=== PATIENT | female | born 1940 | race Caucasian/White ===

== ENCOUNTER 2019-04-22 12:15 | Emergency (ER) | payer MEDICARE, OTHER ==
[~2019-04-22] VITALS: Ht 162.6 cm; Wt 84.2 kg
[~2019-04-22 12:15] MED LIST: ACET-1008 PO; AMI25T PO; AMIT-189 PO; ASPI-611 PO; CA C1TAB15 PO; CLIN150C8 PO; CYCL-394 PO; DIPH-423 PO; ENOX30SY10 SQ; LYR75C PO; MAGN-49 PO; MECL12.5 PO; MECL12.584 PO; MULT-785 PO; NORCO10T PO; OMEG1CAP54 PO; OMEP-84 PO; PANT-47 PO; PREG75CA30 PO; RIVA10TA PO; ROPI1TAB PO; ROPI1TAB4 PO; SENN187T PO; SUCR1ORA2 PO; VITC500T PO
[2019-04-22 12:57] LABS: BASOPHILS % (AUTO) 0.4 % (0-1); EOSINOPHILS # (AUTO) 0.2 X10'3 (0-0.9); EOSINOPHILS % (AUTO) 2.5 % (0-6); HEMOGLOBIN 14.5 g/dl (12.0-16.0); LYMPHOCYTES # (AUTO) 1.4 X10'3 (1.1-4.8); LYMPHOCYTES % (AUTO) 20.5 % (21-51); MEAN CORPUSCULAR HEMOGLOBIN 31.6 PG (27.0-31.0); MEAN CORPUSCULAR HGB CONC 33.7 g/dL (33.0-36.5); MEAN CORPUSCULAR VOLUME 93.7 FL (78-98); MEAN PLATELET VOLUME 9.3 FL (7.4-10.4); MONOCYTES # (AUTO) 0.6 X10'3 (0-0.9); MONOCYTES % (AUTO) 7.9 % (2-12); NEUTROPHILS # (AUTO) 4.8 X10'3 (1.8-7.7); NEUTROPHILS % (AUTO) 68.7 % (42-75); PLATELET COUNT 192 X10'3 (140-440); RED BLOOD COUNT 4.59 X10'6 (4.20-5.60); RED CELL DISTRIBUTION WIDTH 14.3 % (11.5-14.5); WHITE BLOOD COUNT 6.9 X10'3 (4.5-11.0)
[2019-04-22 13:11] LABS: ALANINE AMINOTRANSFERASE 22 U/L (12-78); ALBUMIN 3.9 G/DL (3.4-5.0); ALBUMIN/GLOBULIN RATIO 1.1 (1.1-1.5); ALKALINE PHOSPHATASE 105 IU/L (46-116); ANION GAP 5 (8-16); ASPARTATE AMINO TRANSFERASE 19 U/L (10-37); BILIRUBIN,TOTAL 0.4 MG/DL (0.1-1.0); BLOOD UREA NITROGEN 21 MG/DL (7-18); BUN/CREATININE RATIO 24.1 (6.6-38.0); CHLORIDE 103 MMOL/L (99-107); CREATININE 0.87 MG/DL (0.40-0.90); GLUCOSE 93 MG/DL (70-104); POTASSIUM 3.6 MMOL/L (3.5-5.1); SODIUM 139 MMOL/L (135-145); TOTAL CARBON DIOXIDE 30.6 MMOL/L (24-32); TOTAL PROTEIN 7.6 G/DL (6.4-8.2); eGFR 63 ML/MIN
[2019-04-22] MEDS ORDERED: aspirin 81mg tab.chew PO ONE (14:20)
[2019-04-22] MEDS ORDERED: METO50TA7 PO (14:48)
[2019-04-22 15:37] VITALS: BP 158/84
== END 2019-04-22 15:40 | disposition home or self-care (01) ==
LOC: ER 12:15
DX: R07.9 Chest pain, unspecified (principal); M79.7 Fibromyalgia; K21.9 Gastro-esophageal reflux disease without esophagitis; I10 Essential (primary) hypertension; Z88.0 Allergy status to penicillin; Z79.899 Other long term (current) drug therapy; Z79.82 Long term (current) use of aspirin; Z98.890 Other specified postprocedural states; Z60.2 Problems related to living alone
CPT/HCPCS: 36415; 71045; 80053; 84484; 85025; 93005; 99284

== ENCOUNTER → 2020-03-15 | Emergency (ER) | payer MEDICARE, OTHER ==
[~2020-03-15] VITALS: Ht 162.6 cm; Wt 90.9 kg
[~2020-03-15] MED LIST changes: +MECL-183 PO; -MECL12.584 PO; -ROPI1TAB4 PO; +ROPI1TAB6 PO; +ceFAZolin 1GM/D5W- ADD-VANTAGE 50 ML IV ONE
--- NOTE | 2020-03-15 20:51 | NUR ---
STRAIGHT CATH PERFORMED. PT REPROTED NEW URINARY RENTENTION SYMPTOMS TODAY. 700 ML OBTAINED FROM STRAIGHT CATH PROC, SAMPLE OBTAINED
[2020-03-15 21:15] LABS: CLARITY,URINE CLEAR (Clear); COLOR,URINE YELLOW (Yellow); GLUCOSE, URINE NEGATIVE (Neg); KETONES,URINE NEGATIVE (Neg); LEUKOCYTE ESTERASE ,URINE NEGATIVE (Neg); NITRITES, URINE NEGATIVE (Neg); OCCULT BLOOD,URINE SMALL (Neg); PROTEIN,URINE NEGATIVE (Neg)
[2020-03-15 21:22] LABS: NEUTROPHILS % (AUTO) 88.2 % (42-75)
[2020-03-15 21:23] LABS: BASOPHILS % (AUTO) 0.2 % (0-1); EOSINOPHILS % (AUTO) 0 % (0-6); HEMATOCRIT 38.3 % (35.0-45.0); HEMOGLOBIN 12.9 g/dl (12.0-16.0); LYMPHOCYTES % (AUTO) 6.1 % (21-51); MEAN CORPUSCULAR HEMOGLOBIN 31.4 PG (27.0-31.0); MEAN CORPUSCULAR HGB CONC 33.8 g/dL (33.0-36.5); MEAN CORPUSCULAR VOLUME 92.6 FL (78-98); MEAN PLATELET VOLUME 9.1 FL (7.4-10.4); MONOCYTES # (AUTO) 0.9 X10'3 (0-0.9); MONOCYTES % (AUTO) 5.5 % (2-12); PLATELET COUNT 161 X10'3 (140-440); RED BLOOD COUNT 4.13 X10'6 (4.20-5.60)
[2020-03-15 21:25] LABS: UA COLLECTION TYPE STRAIGHT CATH
[2020-03-15 21:26] LABS: BACTERIA,URINE NONE SEEN /HPF (Neg); RBC,URINE NONE SEEN /HPF (0-2); WBC,URINE 0-4 /HPF (0-4)
[2020-03-15 21:27] LABS: SQUAMOUS EPITHELIAL CELL,UR FEW /LPF (FEW)
[2020-03-15 21:37] LABS: ALANINE AMINOTRANSFERASE 44 U/L (12-78); ALBUMIN 3.5 G/DL (3.4-5.0); ALBUMIN/GLOBULIN RATIO 1.1 (1.1-1.5); ALKALINE PHOSPHATASE 107 IU/L (46-116); ANION GAP 13 (8-16); ASPARTATE AMINO TRANSFERASE 73 U/L (10-37); BILIRUBIN,TOTAL 1.1 MG/DL (0.1-1.0); BLOOD UREA NITROGEN 15 MG/DL (7-18); BUN/CREATININE RATIO 14.2 (6.6-38.0); CALCIUM 8.9 MG/DL (8.5-10.1); CHLORIDE 101 MMOL/L (99-107); CREATININE 1.06 MG/DL (0.40-0.90); GLUCOSE 95 MG/DL (70-104); LIPASE 56 U/L (73-393); POTASSIUM 3.3 MMOL/L (3.5-5.1); SODIUM 142 MMOL/L (135-145); TOTAL PROTEIN 6.7 G/DL (6.4-8.2); eGFR 50 ML/MIN
--- NOTE | 2020-03-15 22:25 | NUR ---
EMS ARRIVED ON UNIT
--- NOTE | 2020-03-15 22:27 | NUR ---
DR GARCIA AWARE PT DID NOT RECIEVE ANCEF TRANSPOR[facility]EAM HAS ARRIVED AND THEY WILL NOT TRANSPORT WITH IV ABX . CHARGE NURSE ALSO AWARE
--- NOTE | 2020-03-15 22:30 | NUR ---
REPORT GIVEN TO EMS TO TRANSPORT PATIENT TO [facility]
--- NOTE | 2020-03-15 22:30 | NUR ---
ANCEF NOT GIVEN
--- NOTE | 2020-03-15 22:34 | NUR ---
REPORT CALLED TO [facility]ELL AT [facility] FOR TRANSFER . RN AWARE ANCEF WAS NOT GIVEN AND PATIENT NEDDS ANCEF ASSAP
[2020-03-15 22:42] VITALS: BP 137/54
== END | disposition home or self-care (01) ==
LOC: ER 19:41
DX: S50.311A Abrasion of right elbow, initial encounter (principal); M54.5 Low back pain; R33.9 Retention of urine, unspecified; G89.29 Other chronic pain; L03.115 Cellulitis of right lower limb; K21.9 Gastro-esophageal reflux disease without esophagitis; M79.7 Fibromyalgia; Z60.2 Problems related to living alone; Z98.890 Other specified postprocedural states; Z88.0 Allergy status to penicillin; Z88.2 Allergy status to sulfonamides; Z79.82 Long term (current) use of aspirin; Z79.899 Other long term (current) drug therapy; W18.39XA Other fall on same level, initial encounter; Y93.89 Activity, other specified; Y92.89 Other specified places as the place of occurrence of the external cause; Y99.8 Other external cause status
CPT/HCPCS: 36415; 51701; 80053; 81001; 83690; 85025; 99285

== ENCOUNTER 2023-05-11 09:38 | Emergency (ER) | payer MEDICARE, OTHER ==
[~2023-05-11] VITALS: Ht 162.6 cm; Wt 104.5 kg
[~2023-05-11 09:38] MED LIST changes: -AMIT-189 PO; +AMIT50TA15 PO; +CLIN-214 PO; -CLIN150C8 PO; -MECL-183 PO; +MECL-226 PO; +ROPI1TAB47 PO; -ROPI1TAB6 PO; -ceFAZolin 1GM/D5W- ADD-VANTAGE 50 ML IV ONE
[2023-05-11 09:44] VITALS: BP 141/54; PULSE 86; RESP 16; TEMP 99.3; O2SAT 99
[2023-05-11 10:37] LABS: BASOPHILS % (AUTO) 0.4 % (0-1); EOSINOPHILS % (AUTO) 0.9 % (0-6); HEMATOCRIT 39.2 % (35.0-45.0); HEMOGLOBIN 13.4 g/dl (12.0-16.0); LYMPHOCYTES # (AUTO) 0.4 X10'3 (1.1-4.8); LYMPHOCYTES % (AUTO) 12.1 % (21-51); MEAN CORPUSCULAR HEMOGLOBIN 30.7 PG (27.0-31.0); MEAN CORPUSCULAR HGB CONC 34.2 g/dL (33.0-36.5); MEAN CORPUSCULAR VOLUME 89.8 FL (78-98); MEAN PLATELET VOLUME 9.2 FL (7.4-10.4); MONOCYTES # (AUTO) 0.4 X10'3 (0-0.9); MONOCYTES % (AUTO) 11.9 % (2-12); NEUTROPHILS # (AUTO) 2.7 X10'3 (1.8-7.7); NEUTROPHILS % (AUTO) 74.7 % (42-75); PLATELET COUNT 183 X10'3 (140-440); RED BLOOD COUNT 4.37 X10'6 (4.20-5.60); RED CELL DISTRIBUTION WIDTH 14.6 % (11.5-14.5); WHITE BLOOD COUNT 3.7 X10'3 (4.5-11.0)
[2023-05-11 10:48] LABS: ALANINE AMINOTRANSFERASE 41 U/L (12-78); ALBUMIN 3.2 G/DL (3.4-5.0); ALBUMIN/GLOBULIN RATIO 0.9 (1.1-1.5); ALKALINE PHOSPHATASE 123 IU/L (46-116); ANION GAP 12 (8-16); ASPARTATE AMINO TRANSFERASE 31 U/L (10-37); BILIRUBIN,TOTAL 0.8 MG/DL (0.1-1.0); BLOOD UREA NITROGEN 23 MG/DL (7-18); CALCIUM 8.1 MG/DL (8.5-10.1); CHLORIDE 102 MMOL/L (99-107); GLUCOSE 121 MG/DL (70-104); LIPASE 14 U/L (16-77); POTASSIUM 3.5 MMOL/L (3.5-5.1); SODIUM 133 MMOL/L (135-145); TOTAL CARBON DIOXIDE 19.2 MMOL/L (24-32); TOTAL PROTEIN 6.7 G/DL (6.4-8.2); eCRCL 39 ML/MIN; eGFR 53 ML/MIN
== END 2023-05-11 14:39 | disposition left against medical advice (07) ==
LOC: ER 09:39
DX: R19.7 Diarrhea, unspecified (principal)
CPT/HCPCS: 36415; 80053; 83690; 85025; 99283

== ENCOUNTER 2024-12-25 14:34 | Outpatient (CLI) | payer MEDICARE, OTHER ==
--- NOTE | 2024-12-25 16:28 | RADIOLOGY REPORT ---
DI HIP UNILATERAL 2 VIEWS HISTORY: LEFT HIP PAIN TECHNICAL DATA: Frontal view was obtained of the pelvis with frontal view and frog lateral view of th e left hip. COMPARISON: None FINDINGS: Left hip arthroplasty with support hardware and cerclage wires appear intact. No left hip fracture is identified. There is no abnormality involving the bony pelvis. The sacroiliac joints appear normal . The pubic symphysis appears normal. The contralateral hip demonstrates no abnormality on the single frontal view. The proximal femurs demonstrate no abnormality. There is degenerative change of the vi sualized lower lumbar spine. IMPRESSION: No acute fracture or dislocation of the pelvis and left hip. Left hip arthroplasty with support hardware and cerclage wires appear intact.
== END 2024-12-25 23:59 | disposition home or self-care (01) ==
LOC: RAD 14:34
PROVIDERS: ATTEND Physician Assistant
DX: M25.552 Pain in left hip (principal)
CPT/HCPCS: 73502